=== PATIENT | male | born 1965 | race African-American/Black ===

== ENCOUNTER 2018-05-05 19:02 | Inpatient (IN) | payer MEDICAID ==
[~2018-05-05] VITALS: Ht 185.4 cm; Wt 120.4 kg
[2018-05-05 19:28] LABS: BASOPHILS # (AUTO) 0.01 x10^3/uL (0-0.1); BASOPHILS % (AUTO) 0 % (0-1); EOSINOPHILS # (AUTO) 0.03 x10^3/uL (0-0.4); EOSINOPHILS % (AUTO) 0 % (1-7); LYMPHOCYTES # (AUTO) 1.59 x10^3/uL (1-3.4); LYMPHOCYTES % (AUTO) 23 % (22-44); MD NO; MEAN CORPUSCULAR HGB CONC 33.8 g/dL (33.2-36.2); MEAN CORPUSCULAR VOLUME 94.7 fL (81-97); MEAN PLATELET VOLUME 8.5 fL (7.4-10.4); MONOCYTES # (AUTO) 0.93 x10^3/uL (0.2-0.8); MONOCYTES % (AUTO) 14 % (2-9); NEUTROPHILS # (AUTO) 4.32 x10^3/uL (1.8-6.8); NEUTROPHILS % (AUTO) 63 % (42-75); PLATELET COUNT 228 x10^3/uL (130-400); RED BLOOD COUNT 4.98 x10^6/uL (4.38-5.82); RED CELL DISTRIBUTION WIDTH 14.2 % (9.4-14.8)
[2018-05-05] MEDS ORDERED: SODIUM CHLORIDE FLUSH 10ML SYR IVF ONE (19:30)
[2018-05-05] MEDS ORDERED: ONDANSETRON 2MG/ML, 2ML IVPush ONE (19:30)
[2018-05-05 19:41] LABS: ALANINE AMINOTRANSFERASE 35 U/L (12-78); ALBUMIN 3.6 g/dL (3.4-5.0); ANION GAP 5 mmol/L (5-15); CALCIUM 8.9 mg/dL (8.5-10.1); CHLORIDE 109 mmol/L (98-107); CREATININE 1.29 mg/dL (0.7-1.3)
[2018-05-05 19:44] LABS: ALKALINE PHOSPHATASE 105 U/L (45-117); BILIRUBIN,TOTAL 0.4 mg/dL (0.2-1.0); TOTAL PROTEIN 9.2 g/dL (6.4-8.2)
[2018-05-05] MEDS ORDERED: ONDANSETRON 2MG/ML, 2ML ONE (19:45)
[2018-05-05] MEDS ORDERED: MORPHINE SULFATE 4 MG/ML, 1ML ONE ×2 (19:45→20:19)
[2018-05-05 19:47] LABS: TROPONIN I < 0.015 ng/mL (0.000-0.045)
[2018-05-05] MEDS: MORPHINE SULFATE 4 MG/ML, 1ML IVPush PRN ×2 (19:49→20:23)
[2018-05-05] MEDS ORDERED: OMNIPAQUE 350 MG/ML, 100ML BOTTLE ONE (20:56)
[2018-05-05] MEDS ORDERED: LORazepam 2 MG/ML, 1ML IVPush ONE (21:00)
[2018-05-05] MEDS ORDERED: LORazepam 2 MG/ML, 1ML ONE (21:01)
[2018-05-05] MEDS ORDERED: HEPARIN 5,000 UNITS/ML, 1ML ONE (21:12)
[2018-05-05] MEDS ORDERED: HEPARIN 25,000 UNITS/500ML PMX 500 ML ONE (21:12)
[2018-05-05] MEDS ORDERED: HEPARIN 5,000 UNITS/ML, 1ML IV ONE (21:30)
[2018-05-05] MEDS: HEPARIN 25,000 UNITS/500ML PMX 500 ML IV PRN (21:40)
[2018-05-05] MEDS ORDERED: BISACODYL 10 MG SUPP PR PRN (22:00)
[2018-05-05] MEDS ORDERED: POLYETHYLENE GLYCOL 17 GM PACKET PO PRN (22:00)
[2018-05-05] MEDS ORDERED: ACETAMINOPHEN 325 MG TABLET PO PRN (22:00)
[2018-05-05] MEDS ORDERED: ONDANSETRON 2MG/ML, 2ML IVPush PRN (22:00)
[2018-05-05 23:12] LABS: MICROSCOPIC INDICATED
[2018-05-05 23:17] VITALS: BP 129/86
[2018-05-05] MEDS: NICOTINE 14MG/24 HR PATCH.TD24 TD SCH ×2 (23:35→23:42)
[2018-05-05] MEDS: SODIUM CHLORIDE FLUSH 10ML SYR IVF SCH (23:42)
[2018-05-05 23:43] LABS: CULTURE INDICATED? NO
[2018-05-06] MEDS ORDERED: ZOLPIDEM 5MG TABLET PO SCH
[2018-05-06] MEDS ORDERED: OXYcodone IR 5MG TABLET PO ONE (00:30)
[2018-05-06 01:30] VITALS: BP 99/70
[2018-05-06 04:03] LABS: BASOPHILS # (AUTO) 0.04 x10^3/uL (0-0.1); BASOPHILS % (AUTO) 1 % (0-1); EOSINOPHILS # (AUTO) 0.03 x10^3/uL (0-0.4); EOSINOPHILS % (AUTO) 0 % (1-7); LYMPHOCYTES % (AUTO) 27 % (22-44); MD NO; MEAN CORPUSCULAR HEMOGLOBIN 32.3 pg (27.5-34.5); MEAN CORPUSCULAR HGB CONC 34.1 g/dL (33.2-36.2); MEAN CORPUSCULAR VOLUME 94.7 fL (81-97); MEAN PLATELET VOLUME 8.2 fL (7.4-10.4); MONOCYTES # (AUTO) 1.11 x10^3/uL (0.2-0.8); MONOCYTES % (AUTO) 14 % (2-9); NEUTROPHILS # (AUTO) 4.45 x10^3/uL (1.8-6.8); NEUTROPHILS % (AUTO) 58 % (42-75); PLATELET COUNT 200 x10^3/uL (130-400); RED BLOOD COUNT 4.61 x10^6/uL (4.38-5.82); RED CELL DISTRIBUTION WIDTH 14.1 % (9.4-14.8)
[2018-05-06 04:13] LABS: ALANINE AMINOTRANSFERASE 34 U/L (12-78); ALBUMIN 3.2 g/dL (3.4-5.0); ANION GAP 7 mmol/L (5-15); CALCIUM 8.1 mg/dL (8.5-10.1); CHLORIDE 106 mmol/L (98-107); CREATININE 1.31 mg/dL (0.7-1.3)
[2018-05-06 04:18] LABS: ALKALINE PHOSPHATASE 99 U/L (45-117); BILIRUBIN,TOTAL 0.5 mg/dL (0.2-1.0); TOTAL PROTEIN 8.4 g/dL (6.4-8.2); TROPONIN I < 0.015 ng/mL (0.000-0.045)
[2018-05-06] MEDS: HEPARIN 5,000 UNITS/ML, 1ML IV PRN ×3 (04:34→19:30)
[2018-05-06] MEDS: morphine SULFATE 10 MG/ML, 1ML IVPush PRN ×5 (04:54→22:55)
[2018-05-06 07:09] VITALS: BP 118/84
[2018-05-06] MEDS: SODIUM CHLORIDE FLUSH 10ML SYR IVF SCH ×2 (08:10→22:11)
[2018-05-06] MEDS: SENNA/DOCUSATE TABLET PO SCH (08:10)
[2018-05-06 11:14] LABS: TROPONIN I < 0.015 ng/mL (0.000-0.045)
[2018-05-06] MEDS ORDERED: ZOLPIDEM 5MG TABLET PO PRN (13:00)
[2018-05-06 14:00] VITALS: BP 137/84
[2018-05-06] MEDS: HYDROcodone/APAP 5/325 TABLET PO PRN (14:41)
[2018-05-06] MEDS: HEPARIN 25,000 UNITS/500ML PMX 500 ML IV PRN (17:01)
[2018-05-06 19:15] VITALS: BP 114/76
[2018-05-06] MEDS: NICOTINE 14MG/24 HR PATCH.TD24 TD SCH (22:11)
[2018-05-07 01:51] VITALS: BP 109/71
[2018-05-07] MEDS: HEPARIN 5,000 UNITS/ML, 1ML IV PRN (02:16)
[2018-05-07] MEDS: HYDROcodone/APAP 5/325 TABLET PO PRN ×2 (02:31→15:08)
[2018-05-07 07:30] VITALS: BP 114/80
[2018-05-07] MEDS: SODIUM CHLORIDE FLUSH 10ML SYR IVF SCH (08:17)
[2018-05-07] MEDS: morphine SULFATE 10 MG/ML, 1ML IVPush PRN (08:18)
[2018-05-07] MEDS: SENNA/DOCUSATE TABLET PO SCH (09:00)
[2018-05-07] MEDS ORDERED: APIXABAN 5 MG TABLET PO SCH (09:00)
[2018-05-07 12:30] VITALS: BP 108/73
[2018-05-07] MEDS ORDERED: HYDR-3240 PO (14:25)
[2018-05-07] MEDS ORDERED: APIX5TAB PO ×2 (14:27)
== END 2018-05-07 18:14 | disposition home or self-care (01) | DRG 176 ==
LOC: ED 20:24 → EDIP 21:19 → 4EST 22:09 → 4WST 05-06 21:38
PROVIDERS: ADMIT Internal Medicine; ATTEND Internal Medicine
DX: I26.99 Other pulmonary embolism without acute cor pulmonale (principal); F17.210 Nicotine dependence, cigarettes, uncomplicated; F12.90 Cannabis use, unspecified, uncomplicated; D18.00 Hemangioma unspecified site; R00.0 Tachycardia, unspecified; Z90.49 Acquired absence of other specified parts of digestive tract; Z79.01 Long term (current) use of anticoagulants; Z71.6 Tobacco abuse counseling
CPT/HCPCS: 36415; 71045; 71275; 76700; 80053; 81001; 83690; 84484; 85025; 85379; 85520; 93005; 93306; 96374; 96375; 99291; J1644; J2405; Q9967; J2060; J2270